=== PATIENT | female | born 1965 | race Caucasian/White ===

== ENCOUNTER 2016-09-25 11:13 | Observation (INO) | payer MEDICAID, OTHER ==
[2016-09-25] MEDS ORDERED: Aspirin 325 mg EC Tablets PO STA (11:53)
[2016-09-25] MEDS ORDERED: Sodium Chloride 0.9% 500 ML IV ONE (11:53)
[2016-09-25] MEDS ORDERED: Albuterol 0.083% Inhal Sol (2.5 mg/3 mL) UD IH STA (11:55)
--- NOTE | 2016-09-25 12:19 | RAD ---
PROCEDURE: CHEST RADIOGRAPH, 1 VIEW portable study 12:04. HISTORY: chest pain COMPARISON: None available. FINDINGS: LUNGS: Clear. PLEURA: No pneumothorax or pleural fluid seen. CARDIOVASCULAR: No radiographic findings to suggest acute or significant cardiovascular disease. OSSEOUS STRUCTURES: No significant abnormalities. VISUALIZED UPPER ABDOMEN: Normal. OTHER FINDINGS: None. IMPRESSION: No active disease. No acute/significant interval changes.
[2016-09-25] MEDS ORDERED: Albuterol 0.083% Inhal Sol (2.5 mg/3 mL) UD ONE (12:28)
[2016-09-25 12:37] LABS: BASO % 0.5 % (0.0-2.0); EOS # 0.2 K/uL (0.0-0.7); HEMATOCRIT 40.3 % (34.0-47.0); LYMPH # 1.9 K/uL (1.0-4.3); LYMPH % 26.2 % (20.0-40.0); MEAN CELL VOLUME 84.6 fL (81.0-99.0); MEAN CORPUSCULAR HEMOGLOBIN 28.2 pg (27.0-31.0); MEAN CORPUSCULAR HGB CONC 33.4 g/dL (33.0-37.0); MEAN PLATELET VOLUME 9.2 fL (7.2-11.7); MONO # 0.6 K/uL (0.0-0.8); MONO % 8.6 % (0.0-10.0); NRBC % 0.1 % (0.0-2.0); RED CELL DISTRIBUTION WIDTH 14.1 % (11.5-14.5); WHITE BLOOD COUNT 7.2 K/uL (4.8-10.8)
[2016-09-25 12:42] LABS: RBC URINE < 1 /hpf (0-3); URINE BILIRUBIN NEGATIVE (NEGATIVE); URINE BLOOD NEGATIVE (NEGATIVE); URINE COLOR Yellow (YELLOW); URINE GLUCOSE (UA) 3+ mg/dL (Normal); URINE KETONE NEGATIVE (NEGATIVE); URINE LEUKOCYTE ESTERASE NEG Leu/uL (Negative); URINE PROTEIN NEGATIVE (NEGATIVE); URINE UROBILINOGEN NORMAL mg/dL (0.2-1.0); WBC URINE < 1 /hpf (0-5)
[2016-09-25 12:47] LABS: CHLORIDE 101 mmol/L (98-107); POTASSIUM 4.1 mmol/L (3.6-5.2); SODIUM 138 mmol/L (132-148)
[2016-09-25 12:49] LABS: ALB/GLOB RATIO 1.3 (1.0-2.1); ALKALINE PHOSPHATASE 64 U/L (38-126); AST/SGOT 41 U/L (14-36); BILIRUBIN,TOTAL 0.6 mg/dL (0.2-1.3); CARBON DIOXIDE 25 mmol/L (22-30); GFR AFRICAN-AMERICAN > 60; TOTAL PROTEIN 7.9 g/dL (6.3-8.3)
[2016-09-25 12:50] LABS: ALT/SGPT 55 U/L (9-52); BLOOD UREA NITROGEN 15 mg/dL (7-17); CALCIUM 9.7 mg/dl (8.6-10.4); GLUCOSE,RANDOM 186 mg/dL (65-105)
--- NOTE | 2016-09-25 14:31 | C.PDOC ---
History Of Present Illness 51 year old female presents to the ED with complaints of left sided chest pain associated with pins and needles sensation to the left hand. Describes the pain as sharp and intermittent. Patient notes vomiting yesterday, nausea today. Also notes bilateral eye itching for the past six weeks. Notes its secondary to allergic reaction. She has been using eye drops with no relief. Patient denies any shortness of breath and is currently not experiencing chest pain. No known allergen. No lip or tongue swelling, no difficulty swallowing. Time Seen by Provider: 09/25/16 11:41 Chief Complaint (Nursing): Chest Pain History Per: Patient History/Exam Limitations: no limitations Onset/Duration Of Symptoms: Hrs (nausea began today), Days (vomiting yesterday and chest pain began last night ), Persistent (bilateral eye itch) Quality: "Pain" Associated Symptoms: Nausea. denies: Dyspnea, Diaphoresis, Syncope Recent travel outside of the [place]: No Past Medical History Reviewed: Historical Data, Nursing Documentation, Vital Signs Vital Signs: Last Vital Signs Temp 98.3 F 09/25/16 11:36 Pulse 62 09/25/16 14:35 Resp 16 09/25/16 14:35 BP 128/74 09/25/16 14:35 Pulse Ox 98 09/25/16 16:39 - Medical History PMH: Anxiety, Asthma, Bronchitis, Depression, Diabetes Family History: States: Unknown Family Hx - Social History Hx Tobacco Use: Yes Hx Alcohol Use: Yes Hx Substance Use: No - Immunization History Hx Tetanus Toxoid Vaccination: No Hx Influenza Vaccination: No Hx Pneumococcal Vaccination: No Review Of Systems Constitutional: Negative for: Fever, Chills, Sweats Eyes: Negative for: Vision Change Cardiovascular: Positive for: Chest Pain (currently no chest pains on visit to ED), Other (with sensation of pins and needles in left hand ). Negative for: Palpitations Respiratory: Negative for: Cough, Shortness of Breath Gastrointestinal: Positive for: Nausea, Vomiting. Negative for: Abdominal Pain , Diarrhea Physical Exam - Physical Exam Appears: Non-toxic, No Acute Distress Skin: Warm, Dry Head: Atraumatic Eye(s): bilateral: PERRL, EOMI, Other (Bilateral mild upper and lower eyelid swelling, mild erythema, no purulent discharge ) Ear(s): Bilateral: Normal Nose: Normal Oral Mucosa: Moist Throat: Normal, No Erythema, No Exudate Neck: Normal ROM, Supple Chest: Symmetrical, No Deformity, Tenderness (tenderness with palpation to left chest wall ) Cardiovascular: Rhythm Regular Respiratory: Decreased Breath Sounds, No Rales, No Stridor, No Wheezing Gastrointestinal/Abdominal: Soft, No Tenderness, No Distention, No Guarding, No Rebound Extremity: Normal ROM, No Tenderness Neurological/Psych: Oriented x3, Normal Speech, Normal Sensation ED Course And Treatment - Laboratory Results Result Diagrams: 09/25/16 12:24 09/25/16 12:24 ECG: Interpreted By Me (Dr Charles), Viewed By Me ECG Rhythm: Sinus Rhythm (sinus rhythm 70 bpm ) Interpretation Of EC O2 Sat by Pulse Oximetry: 98 - Physician Consult Information Time Consulting Physician Contacted: 15:30 Physician Contacted: Alfredo Hallman Outcome Of Conversation: Discussed case with Dr. Hallman and agrees on admission. Disposition - Disposition Disposition: HOSPITALIZED Disposition Time: 14:30 Condition: STABLE - Clinical Impression Clinical Impression: Chest pain, Eyelid inflammation - Scribe Statement The provider has reviewed the documentation as recorded by the Scriblane Walker All medical record entries made by the Gisellibe were at my direction and personally dictated by me. I have reviewed the chart and agree that the record accurately reflects my personal performance of the history, physical exam, medical decision making, and the department course for this patient. I have also personally directed, reviewed, and agree with the discharge instructions and disposition.
[2016-09-25] MEDS ORDERED: (Novolog) Insulin Aspart, Recombinant 100 u/ml 10 ml vial SC SCH (16:30)
[2016-09-25] MEDS: Enoxaparin 40 mg Syringe SC SCH (17:07)
[2016-09-25] MEDS: (Novolog) Insulin Aspart, Recombinant 100 u/ml 10 ml vial SC SCH ×2 (17:08→21:39)
[2016-09-25] MEDS ORDERED: Albuterol 0.083% Inhal Sol (2.5 mg/3 mL) UD INH SCH (18:00)
[2016-09-25] MEDS: (Novolin 70/30) NPH/Regular 70/30 Units/ml 10 ml vial SC SCH (18:10)
[2016-09-25] MEDS: PrednisoLONE 1% Opht Susp(5 ml) OU SCH (18:12)
[2016-09-25] MEDS ORDERED: (Lantus) Insulin Glargine, Recombinant SC SCH (22:00)
[2016-09-25] MEDS: Albuterol 0.083% Inhal Sol (2.5 mg/3 mL) UD INH SCH (22:23)
--- NOTE | 2016-09-25 23:43 | CP.PCM.HP ---
Present on Admission - Present on Admission Any Indicators Present on Admission: No Past Patient History - Past Medical History & Family History Past Medical History?: Yes - Past Social History Smoking Status: Light Smoker < 10 Cigarettes Daily - CARDIAC Hx Cardiac Disorders: Yes Hx Heart Attack: Yes - PULMONARY Hx Respiratory Disorders: Yes Hx Asthma: Yes Hx Bronchitis: Yes - NEUROLOGICAL Hx Neurological Disorder: No - HEENT Hx HEENT Problems: No Other/Comment: pt is c/o swelling to both eyes, "burning, itching,watery" for past 6 weeks and states has been to MD - RENAL Hx Chronic Kidney Disease: No - ENDOCRINE/METABOLIC Hx Endocrine Disorders: Yes Hx Diabetes Mellitus Type 2: Yes - HEMATOLOGICAL/ONCOLOGICAL Hx Blood Disorders: No - INTEGUMENTARY Hx Dermatological Problems: No - MUSCULOSKELETAL/RHEUMATOLOGICAL Hx Musculoskeletal Disorders: No Hx Falls: Yes - GASTROINTESTINAL Hx Gastrointestinal Disorders: No - GENITOURINARY/GYNECOLOGICAL Hx Genitourinary Disorders: No - PSYCHIATRIC Hx Psychophysiologic Disorder: Yes Hx Anxiety: Yes Hx Depression: Yes Hx Substance Use: No - SURGICAL HISTORY Hx Surgeries: Yes Hx Tubal Ligation: Yes - ANESTHESIA Hx Anesthesia: Yes Hx Anesthesia Reactions: No Hx Malignant Hyperthermia: No Meds Allergies/Adverse Reactions: Allergies Allergy/AdvReac Type Severity Reaction Status Date / Time Penicillins Allergy Verified 09/25/16 11:23 Results - Vital Signs Recent Vital Signs: Last Vital Signs Temp 97.5 F L 09/25/16 15:11 Pulse 68 09/25/16 22:24 Resp 18 09/25/16 19:57 BP 130/70 09/25/16 22:00 Pulse Ox 98 09/25/16 16:42 - Labs Result Diagrams: 09/26/16 06:17 09/26/16 06:17 Labs: Laboratory Results - last 24 hr 09/25/16 09/25/16 09/25/16 16:15 16:53 21:38 POC Glucose (mg/dL) 206 H 226 H Total Creatine Kinase 118 CK-MB (Mass) 2.35 Troponin I, Quant < 0.0120
[2016-09-26 01:16] VITALS: O2SAT 95
[2016-09-26 06:39] LABS: HEMATOCRIT 35.4 % (34.0-47.0); MEAN CELL VOLUME 84.9 fL (81.0-99.0); MEAN CORPUSCULAR HEMOGLOBIN 28.2 pg (27.0-31.0); MEAN CORPUSCULAR HGB CONC 33.2 g/dL (33.0-37.0); WHITE BLOOD COUNT 5.6 K/uL (4.8-10.8)
[2016-09-26 07:03] LABS: CHLORIDE 101 mmol/L (98-107); POTASSIUM 3.8 mmol/L (3.6-5.2); SODIUM 135 mmol/L (132-148)
[2016-09-26 07:05] LABS: BILIRUBIN,TOTAL 0.6 mg/dL (0.2-1.3); GFR AFRICAN-AMERICAN > 60
[2016-09-26 07:06] LABS: ALB/GLOB RATIO 1.2 (1.0-2.1); ALKALINE PHOSPHATASE 69 U/L (38-126); ALT/SGPT 40 U/L (9-52); AST/SGOT 36 U/L (14-36); BLOOD UREA NITROGEN 15 mg/dL (7-17); CALCIUM 9.2 mg/dl (8.6-10.4); CARBON DIOXIDE 24 mmol/L (22-30); GLUCOSE,RANDOM 212 mg/dL (65-105); TOTAL PROTEIN 6.7 g/dL (6.3-8.3)
[2016-09-26 07:19] LABS: THYROID STIMULATING HORMONE 3.67 mIU/L (0.46-4.68)
[2016-09-26 08:03] VITALS: BP 126/81; PULSE 61; RESP 21; TEMP 97.6
[2016-09-26] MEDS: Albuterol 0.083% Inhal Sol (2.5 mg/3 mL) UD INH SCH ×2 (08:40→13:19)
[2016-09-26] MEDS: (Novolog) Insulin Aspart, Recombinant 100 u/ml 10 ml vial SC SCH ×2 (08:56→13:13)
[2016-09-26] MEDS ORDERED: Pneumococcal 23-Valent Vaccine IM ONE (10:00)
[2016-09-26] MEDS: Enoxaparin 40 mg Syringe SC SCH (10:49)
[2016-09-26] MEDS: PrednisoLONE 1% Opht Susp(5 ml) OU SCH (10:51)
[2016-09-26] MEDS: (Novolin 70/30) NPH/Regular 70/30 Units/ml 10 ml vial SC SCH (11:28)
--- NOTE | 2016-09-26 16:00 | CP.PCM.PN ---
Subjective - Date & Time of Evaluation Date of Evaluation: 09/26/16 Time of Evaluation: 16:00 - Subjective Subjective: alert and oriented x3, NAD. Objective - Vital Signs/Intake and Output Vital Signs (last 24 hours): Temp Pulse Resp BP Pulse Ox 97.6 F 61 21 126/81 95 09/26/16 08:02 09/26/16 08:02 09/26/16 08:02 09/26/16 08:02 09/26/16 08:02 Intake and Output: 09/26/16 09/26/16 06:59 18:59 Intake Total 540 Balance 540 - Medications Medications: Current Medications Acetaminophen (Tylenol 325mg Tab) 650 mg PO Q6 PRN PRN Reason: Pain, moderate (4-7) Albuterol Sulfate (Albuterol 0.083% Inhal Radha (2.5 Mg/3 Ml) Ud) 2.5 mg INH RQID [facility] Last Admin: 09/26/16 13:19 Dose: 2.5 mg Aspirin (Aspirin Chewable) 81 mg PO DAILY [facility] Last Admin: 09/26/16 10:49 Dose: 81 mg Enoxaparin Sodium (Lovenox) 40 mg SC DAILY [facility] Last Admin: 09/26/16 10:49 Dose: 40 mg Insulin Aspart (Novolog) 0 unit SC ACHS [facility] PRN Reason: Protocol Last Admin: 09/26/16 13:13 Dose: 4 unit Insulin Glargine (Lantus) 45 unit SC HS [facility] Last Admin: 09/25/16 21:43 Dose: 45 u Insulin Human Isoph/Insulin Regular (Novolin 70/30 (70/30 Units/Ml) 10 Ml) 40 units SC ACLD [facility] Last Admin: 09/26/16 11:28 Dose: 40 units Loratadine (Claritin) 10 mg PO DAILY [facility] Last Admin: 09/26/16 10:49 Dose: 10 mg Montelukast Sodium (Singulair) 10 mg PO [facility] Last Admin: 09/25/16 21:42 Dose: 10 mg Prednisolone Acetate (Pred Forte 1% Opht Susp) 0 ml OU BID [facility] Last Admin: 09/26/16 10:51 Dose: Not Given Rosuvastatin Calcium (Crestor) 10 mg PO HS [facility] Last Admin: 09/25/16 21:43 Dose: 10 mg Sitagliptin Phosphate (Januvia) 50 mg PO DAILY [facility] Last Admin: 09/26/16 10:49 Dose: 50 mg Zolpidem Tartrate (Ambien) 5 mg PO HS PRN PRN Reason: Insomnia Last Admin: 09/25/16 21:43 Dose: 5 mg - Labs Labs: 09/26/16 06:17 09/26/16 06:17 Assessment and Plan - Assessment and Plan (Free Text) Assessment: Patient is seen and examined complaining of burning in the eyes for 2 months, needs to see eye doctor. Denies sob or chest pains, no acute distress. Both eyes intact, no redness to sclera or conjunctiva. D/W DR Hallman, plan to discharge home and follow up in the office to get referral to an pump erector helper.
--- NOTE | 2016-09-26 18:01 | CARD ---
APPROVED REPORT EXAM: Two-dimensional and M-mode echocardiogram with Doppler and color Doppler. INDICATION Chest Pain RISK FACTORS Diabetes M-Mode DIMENSIONS RVDd2.03 (2.1-3.2cm)Left Atrium (MM)4.61 (2.5-4.0cm) IVSd1.13 (0.7-1.1cm)Aortic Root3.01 (2.2-3.7cm) LVDd5.74 (4.0-5.6cm)Aortic Cusp Exc.2.03 (1.5-2.0cm) PWd1.52 (0.7-1.1cm)FS (%) 34 % LVDs3.79 (2.0-3.8cm)LVEF (%)62 (>50%) Aortic Valve AoV Peak Kofazizi575.2cm/Mary [place] GR.9mmHg Mitral Valve MV E Cpphqbdm03.2cm/sMV A Bixytiis85.8cm/sE/A ratio1.1 TDI E/Lateral E'0.0E/Medial E'0.0 Tricuspid Valve TR Peak Ecshjwma985bo/sTR Peak Gr.42xhZdIHKV31wjOn LEFT VENTRICLE The left ventricle is normal size. There is normal left ventricular wall thickness. The left ventricular function is normal. The left ventricular ejection fraction is within the normal range. There is normal LV segmental wall motion. Transmitral Doppler flow pattern is Grade I-abnormal relaxation pattern. RIGHT VENTRICLE The right ventricle is normal size. There is normal right ventricular wall thickness. The right ventricular systolic function is normal. ATRIA The left atrium is mildly dilated. The right atrium size is normal. AORTIC VALVE The aortic valve is mildly thickened. No aortic regurgitation is present. MITRAL VALVE The mitral valve is mildly thickened. There is no mitral valve stenosis. TRICUSPID VALVE There is mild pulmonary hypertension. GREAT VESSELS The aortic root is normal in size. The IVC is normal in size and collapses >50% with inspiration. PERICARDIAL EFFUSION There is a small loculated anterior pericardial effusion. <Conclusion> The left ventricle is normal size. There is normal left ventricular wall thickness. The left ventricular function is normal. The left ventricular ejection fraction is within the normal range. There is normal LV segmental wall motion. Transmitral Doppler flow pattern is Grade I-abnormal relaxation pattern. There is mild pulmonary hypertension.
--- NOTE | 2016-09-26 22:51 | CP.PCM.DIS ---
Provider - Provider Date of Admission: 09/25/16 13:44 Attending physician: Alfredo Hallman MD Time Spent in preparation of Discharge (in minutes): 30 Hospital Course - Lab Results Lab Results: Most Recent Lab Values WBC 5.6 K/uL (4.8-10.8) 09/26/16 06:17 RBC 4.17 Mil/uL (3.80-5.20) 09/26/16 06:17 Hgb 11.7 g/dL (11.0-16.0) 09/26/16 06:17 Hct 35.4 % (34.0-47.0) 09/26/16 06:17 MCV 84.9 fL (81.0-99.0) 09/26/16 06:17 MCH 28.2 pg (27.0-31.0) 09/26/16 06:17 MCHC 33.2 g/dL (33.0-37.0) 09/26/16 06:17 RDW 14.0 % (11.5-14.5) 09/26/16 06:17 Plt Count 199 K/uL (130-400) 09/26/16 06:17 MPV 9.0 fL (7.2-11.7) 09/26/16 06:17 Neut % (Auto) 61.7 % (50.0-75.0) 09/25/16 12:24 Lymph % (Auto) 26.2 % (20.0-40.0) 09/25/16 12:24 [place] % (Auto) 8.6 % (0.0-10.0) 09/25/16 12:24 Eos % (Auto) 3.0 % (0.0-4.0) 09/25/16 12:24 Baso % (Auto) 0.5 % (0.0-2.0) 09/25/16 12:24 Neut # 4.4 K/uL (1.8-7.0) 09/25/16 12:24 Lymph # 1.9 K/uL (1.0-4.3) 09/25/16 12:24 [place] # 0.6 K/uL (0.0-0.8) 09/25/16 12:24 Eos # 0.2 K/uL (0.0-0.7) 09/25/16 12:24 Baso # 0.0 K/uL (0.0-0.2) 09/25/16 12:24 Sodium 135 mmol/L (132-148) 09/26/16 06:17 Potassium 3.8 mmol/L (3.6-5.2) 09/26/16 06:17 Chloride 101 mmol/L (98-107) 09/26/16 06:17 Carbon Dioxide 24 mmol/L (22-30) 09/26/16 06:17 Anion Gap 14 (10-20) 09/26/16 06:17 BUN 15 mg/dL (7-17) 09/26/16 06:17 Creatinine 0.6 MG/DL (0.7-1.2) L 09/26/16 06:17 Est GFR ( Amer) > 60 09/26/16 06:17 Est GFR (Non-Af Amer) > 60 09/26/16 06:17 POC Glucose (mg/dL) 315 mg/dL (65-110) H 09/26/16 11:44 Random Glucose 212 mg/dL (65-105) H 09/26/16 06:17 Hemoglobin A1c 9.4 % (4.2-6.5) H 09/26/16 06:17 Calcium 9.2 mg/dl (8.6-10.4) 09/26/16 06:17 Total Bilirubin 0.6 mg/dL (0.2-1.3) 09/26/16 06:17 AST 36 U/L (14-36) 09/26/16 06:17 ALT 40 U/L (9-52) 09/26/16 06:17 Alkaline Phosphatase 69 U/L (38-126) 09/26/16 06:17 Total Creatine Kinase 118 U/L (30-135) 09/25/16 16:53 CK-MB (Mass) 2.35 ng/mL (0.0-3.38) 09/25/16 16:53 Troponin I < 0.0120 ng/mL (0.00-0.120) 09/26/16 06:17 Troponin I, Quant < 0.0120 ng/mL (0.00-0.120) 09/25/16 16:53 NT-Pro-B Natriuret Pep 259 pg/mL (0-900) 09/25/16 12:24 Total Protein 6.7 g/dL (6.3-8.3) 09/26/16 06:17 Albumin 3.6 g/dL (3.5-5.0) 09/26/16 06:17 Globulin 3.0 gm/dL (2.2-3.9) 09/26/16 06:17 Albumin/Globulin Ratio 1.2 (1.0-2.1) 09/26/16 06:17 TSH 3rd Generation 3.67 mIU/L (0.46-4.68) 09/26/16 06:17 Urine Color Yellow (YELLOW) 09/25/16 12:24 Urine Clarity Clear (Clear) 09/25/16 12:24 Urine pH 5.0 (5.0-8.0) 09/25/16 12:24 Ur Specific [place] 1.015 (1.003-1.030) 09/25/16 12:24 Urine Protein Negative mg/dL (NEGATIVE) 09/25/16 12:24 Urine Glucose (UA) 3+ mg/dL (Normal) H 09/25/16 12:24 Urine Ketones Negative mg/dL (NEGATIVE) 09/25/16 12:24 Urine Blood Negative (NEGATIVE) 09/25/16 12:24 Urine Nitrate Negative (NEGATIVE) 09/25/16 12:24 Urine Bilirubin Negative (NEGATIVE) 09/25/16 12:24 Urine Urobilinogen Normal mg/dL (0.2-1.0) 09/25/16 12:24 Ur Leukocyte Esterase Neg [place]/uL (Negative) 09/25/16 12:24 Urine WBC (Auto) < 1 /hpf (0-5) 09/25/16 12:24 Urine RBC (Auto) < 1 /hpf (0-3) 09/25/16 12:24 Ur Squamous Epith Cells 1 /hpf (0-5) 09/25/16 12:24 - Hospital Course Hospital Course: Patient is seen and examined complaining of burning in the eyes for 2 months, needs to see eye doctor. Denies sob or chest pains, no acute distress. Both eyes intact, no redness to sclera or conjunctiva. plan to discharge home and follow up in the office to get referral to an heading and priming tool setter. Discharge Exam - Head Exam Head Exam: NORMAL INSPECTION - Eye Exam Eye Exam: EOMI, Normal appearance - ENT Exam ENT Exam: Mucous Membranes Moist - Respiratory Exam Respiratory Exam: Clear to PA & Lateral, NORMAL BREATHING PATTERN - Cardiovascular Exam Cardiovascular Exam: REGULAR RHYTHM, +S1, +S2 - GI/Abdominal Exam GI & Abdominal Exam: Normal Bowel Sounds Discharge Plan - Follow Up Plan Condition: STABLE Disposition: HOME/ ROUTINE Instructions: Chest Pain (DC), Asthma (DC), Conjunctivitis (GEN) Additional Instructions: Follow up with Dr. Hallman in one week. Follow up with heading and priming tool setter as per MD. If any symptoms persist, return to the ER immediately. Referrals: Alfredo Hallman MD [Staff Provider] -
--- NOTE | 2016-09-27 01:58 | CARD ---
APPROVED REPORT EKG Measurement Heart [id number] <Conclusion> Normal sinus rhythm Normal ECG
--- NOTE | 2016-10-17 08:00 | CARD ---
APPROVED REPORT EKG Measurement Heart [id number] [id number] <Conclusion> Normal sinus rhythm Normal ECG
== END 2016-09-26 16:25 | disposition home or self-care (01) ==
LOC: C.ER 11:13 → C.9E 13:44 → C.5T 15:00
PROVIDERS: ADMIT Internal Medicine; ATTEND Internal Medicine
DX: R07.9 Chest pain, unspecified (principal); E11.9 Type 2 diabetes mellitus without complications; H01.9 Unspecified inflammation of eyelid; J45.909 Unspecified asthma, uncomplicated; Z87.891 Personal history of nicotine dependence
CPT/HCPCS: 36415; 71010; 80053; 81001; 82550; 82553; 82948; 83036; 83880; 84443; 84484; 85025; 85027; 93306; 94150; 94640; 99285; G0378; J1650; J7040